=== PATIENT | male | born 1990 ===

== ENCOUNTER 2023-02-13 11:07 | Inpatient (IN) | payer OTHER ==
[2023-02-13 17:01] LABS: Basophils % (A) 0 %; Eosinophils # (A) 0.3 k/uL (0-0.7); Eosinophils % (A) 2 %; HCT 40.1 % (39.0-53.0); HGB 13.3 gm/dL (13.0-17.5); Lymphocytes % (A) 8 %; MCH 29.7 pg (25.0-35.0); MCHC 33.1 g/dL (31.0-37.0); MCV 89.8 fL (80.0-100.0); Mean Platelet Volume 8.3; Monocytes # (A) 0.6 k/uL (0-1.0); Monocytes % (A) 5 %; Neutrophils # (A) 10.4 k/uL (1.3-7.7); Neutrophils % (A) 83 %; Platelet Count 308 k/uL (150-450); RBC 4.47 m/uL (4.30-5.90); RDW 12.7 % (11.5-15.5); WBC 12.6 k/uL (3.8-10.6)
[2023-02-13] MEDS ORDERED: PIPERACILLIN-TAZOBACTAM 3.375 GM in SODIUM CHLORIDE 0.9% 100 ML IVPB STA (18:34)
[2023-02-13 18:51] LABS: ALT 23 U/L (4-49); AST 20 U/L (17-59); African American GFR (CKD) >90 (>60 ml/min/1.73 sqM); Albumin 2.9 g/dL (3.5-5.0); Alkaline Phosphatase 213 U/L (38-126); Anion Gap 14 mmol/L; Blood Urea Nitrogen 21 mg/dL (9-20); Calcium 8.4 mg/dL (8.4-10.2); Carbon Dioxide 18 mmol/L (22-30); Chloride 103 mmol/L (98-107); Glucose 279 mg/dL (74-99); Non-African American GFR(CKD) >90 (>60 ml/min/1.73 sqM); Potassium 4.3 mmol/L (3.5-5.1); Sodium 135 mmol/L (137-145); Total Bilirubin 0.5 mg/dL (0.2-1.3); Total Protein 6.1 g/dL (6.3-8.2)
--- NOTE | 2023-02-13 20:07 | ED ---
General Adult HPI - General Chief complaint: Skin/Abscess/Foreign Body Stated complaint: abd wound Time Seen by Provider: 02/13/23 16:26 Source: patient, RN notes reviewed Mode of arrival: ambulatory Limitations: no limitations - History of Present Illness Initial comments: 32-year-old male presents emergency Department with chief complaint of "boils." Patient states that he has a lesion in his pubic region that appeared about 1 week ago then he noticed another one on his left neck/shoulder about 2 days later. He states that the spots have had purulent discharge. His girlfriend states that she has been putting witch edgardo and Neosporin on the areas. Patient states that he has been having chills but no recorded fever at home. - Related Data Home Medications Medication Instructions Recorded Confirmed Ibuprofen [Motrin Ib] 800 mg PO Q8H PRN 02/13/23 02/13/23 Allergies Allergy/AdvReac Type Severity Reaction Status Date / Time No Known Allergies Allergy Verified 02/13/23 16:38 Review of Systems ROS Statement: Those systems with pertinent positive or pertinent negative responses have been documented in the HPI. ROS Other: All systems not noted in ROS Statement are negative. Past Medical History Past Medical History: Diabetes Mellitus Additional Past Medical History / Comment(s): COVID 2019 History of Any Multi-Drug Resistant Organisms: None Reported Past Surgical History: Orthopedic Surgery Additional Past Surgical History / Comment(s): rt wrist Past Psychological History: No Psychological Hx Reported Smoking Status: Never smoker Past Alcohol Use History: Rare Past Drug Use History: Marijuana General Exam Limitations: no limitations General appearance: alert, in no apparent distress Head exam: Present: atraumatic, normocephalic, normal inspection Eye exam: Present: normal appearance ENT exam: Present: normal exam, mucous membranes moist Neck exam: Present: other (wheeping wound on the left neck/shoulder, purulent drainage, erythematous, tender). Absent: tenderness, meningismus, lymphadenopathy Respiratory exam: Present: normal lung sounds bilaterally. Absent: respiratory distress, wheezes, rales, rhonchi, stridor Cardiovascular Exam: Present: regular rate, normal rhythm, normal heart sounds. Absent: systolic murmur, diastolic murmur, rubs, gallop, clicks GI/Abdominal exam: Present: soft, normal bowel sounds. Absent: distended, tenderness, guarding, rebound, rigid Extremities exam: Present: normal inspection, full ROM, normal capillary refill. Absent: tenderness, pedal edema, joint swelling, calf tenderness Back exam: Present: normal inspection Neurological exam: Present: alert, oriented X3 Psychiatric exam: Present: normal affect, normal mood Skin exam: Present: other (Patient has 2 wheeping, erythematous wounds, one being on his pubic bone and the other on his left neck, purulent drainage is present) Course Vital Signs 02/13/23 02/13/23 02/13/23 11:37 16:22 17:53 Temperature 98.1 F 98.2 F Pulse Rate 93 90 90 Respiratory 20 18 18 Rate Blood Pressure 157/94 164/105 170/98 O2 Sat by Pulse 99 99 99 Oximetry 02/13/23 18:55 Temperature Pulse Rate 70 Respiratory 18 Rate Blood Pressure 157/78 O2 Sat by Pulse 97 Oximetry Medical Decision Making - Medical Decision Making Was pt. sent in by a medical professional or institution (, PA, H[employer] INSPECTOR [employer]TER, urgent care, hospital, or [facility]...) When possible be specific @ -No Did you speak to anyone other than the patient for history (EMS, parent, family, police, friend...)? What history was obtained from this source @ -No Did you review nursing and triage notes (agree or disagree)? Why? @ -I reviewed and agree with nursing and triage notes Were old charts reviewed (outside hosp., previous admission, EMS record, old EKG, old radiological studies, urgent care reports/EKG's, [facility] records)? Report findings @ -No old charts were reviewed Differential Diagnosis (chest pain, altered mental status, abdominal pain women, abdominal pain men, vaginal bleeding, weakness, fever, dyspnea, syncope, headache, dizziness, GI bleed, back pain, seizure, CVA, palpatations, mental health, musculoskeletal)? @ -Differential Fever: Pneumonia, viral URI, endocarditis, myocarditis, pericarditis, otitis, sinusitis, peritonsillar Abscess, retropharyngeal Abscess, epiglottitis, peritonitis, appendicitis, Samantha cystitis, diverticulitis, hepatitis, colitis, UTI, PID, TOA, pyelonephritis, prostatitis, epididymitis, meningitis, encephalitis, pulmonary embolism, CVA, thyroid storm, pancreatitis, adrenal crisis, cavernous sinus thrombosis, this is not meant to be an all-inclusive list. EKG interpreted by me (3pts min.). @ -None X-rays interpreted by me (1pt min.). @ -None done CT interpreted by me (1pt min.). @ -None done U/S interpreted by me (1pt. min.). @ -None done What testing was considered but not performed or refused? (CT, X-rays, U/S, labs)? Why? @ -None What meds were considered but not given or refused? Why? @ -None Did you discuss the management of the patient with other professionals (p dee deefessionals i.e. , PA, H[employer] INSPECTOR [employer]TER, lab, RT, psych nurse, social services assistant, text transcriber, teacher, house officer, field case manager)? Give summary @ -Yes case was discussed with Dr. Blanca who is accepting the admission Was smoking cessation discussed for >3mins.? @ -No Was critical care preformed (if so, how long)? @ -No Were there social determinants of health that impacted care today? How? (Homelessness, low income, unemployed, alcoholism, drug addiction, transportation, low edu. Level, literacy, decrease access to med. care, fci, rehab)? @ -No Was there de-escalation of care discussed even if they declined (Discuss DNR or withdrawal of care, Hospice)? DNR status @ -No What co-morbidities impacted this encounter? (DM, HTN, Smoking, COPD, CAD, Cancer, CVA, ARF, Chemo, Hep., AIDS, mental health diagnosis, sleep apnea, morbid obesity)? @ -None Was patient admitted / discharged? Hospital course, mention meds given and route, prescriptions, significant lab abnormalities, going to OR and other pertinent info. @ -Admitted. Patient presented to the emergency department with chief complaint of draining wounds x1 week. Patient endorses chills. CBC and CMP were obtained which showed WBC 12.6, neutrophils 12.4, hemoglobin 13.3, hematocrit 40.1; CMP showed Na 135, glucose 279, alk phos 213, albumin 2.9. Blood cultures and wound cultures were obtained. Patient was administered Zosyn and vancomycin. With the patient's history of diabetes there is higher risk for complications. Case was discussed with Dr. Blanca who is accepting of the admission with infectious disease and surgery on consult. Case discussed with my attending, Dr. Henirquez Undiagnosed new problem with uncertain prognosis? @ -No Drug Therapy requiring intensive monitoring for toxicity (Heparin, Nitro, Insulin, Cardizem)? @ -No Were any procedures done? @ -No Diagnosis/symptom? @ -Abscess Acute, or Chronic, or Acute on Chronic? @ -Acute Uncomplicated (without systemic symptoms) or Complicated (systemic symptoms)? @ -Uncomplicated Side effects of treatment? @ -No Exacerbation, Progression, or Severe Exacerbation? @ -No Poses a threat to life or bodily function? How? (Chest pain, [place], [place], pneumonia, PE, COPD, DKA, ARF, appy, cholecystitis, CVA, Diverticulitis, Homicidal, Suicidal, threat to staff... and all critical care pts) @ -No - Lab Data Result diagrams: 02/13/23 16:20 02/13/23 18:04 Lab Results 02/13/23 02/13/23 Range/Units 16:20 18:04 WBC 12.6 H (3.8-10.6) k/uL RBC 4.47 (4.30-5.90) m/uL Hgb 13.3 (13.0-17.5) gm/dL Hct 40.1 (39.0-53.0) % MCV 89.8 (80.0-100.0) fL MCH 29.7 (25.0-35.0) pg MCHC 33.1 (31.0-37.0) g/dL RDW 12.7 (11.5-15.5) % Plt Count 308 (150-450) k/uL MPV 8.3 Neutrophils % 83 % Lymphocytes % 8 % Monocytes % 5 % Eosinophils % 2 % Basophils % 0 % Neutrophils # 10.4 H (1.3-7.7) k/uL Lymphocytes # 1.0 (1.0-4.8) k/uL Monocytes # 0.6 (0-1.0) k/uL Eosinophils # 0.3 (0-0.7) k/uL Basophils # 0.0 (0-0.2) k/uL Sodium 135 L (137-145) mmol/L Potassium 4.3 (3.5-5.1) mmol/L Chloride 103 (98-107) mmol/L Carbon Dioxide 18 L (22-30) mmol/L Anion Gap 14 mmol/L BUN 21 H (9-20) mg/dL Creatinine 1.01 (0.66-1.25) mg/dL Est GFR (CKD-EPI)AfAm >90 (>60 ml/min/1.73 sqM) Est GFR (CKD-EPI)NonAf >90 (>60 ml/min/1.73 sqM) Glucose 279 H (74-99) mg/dL Calcium 8.4 (8.4-10.2) mg/dL Total Bilirubin 0.5 (0.2-1.3) mg/dL AST 20 (17-59) U/L ALT 23 (4-49) U/L Alkaline Phosphatase 213 H (38-126) U/L Total Protein 6.1 L (6.3-8.2) g/dL Albumin 2.9 L (3.5-5.0) g/dL Disposition Clinical Impression: Abscess of pubic region Disposition: HOME SELF-CARE Condition: Stable Is patient prescribed a controlled substance at d/c from ED?: No Referrals: None,Stated [Primary Care Provider] - 1-2 days Time of Disposition: 20:23
[2023-02-13] MEDS ORDERED: ACETAMINOPHEN TAB 325 MG TAB PO PRN (20:12)
[2023-02-13] MEDS ORDERED: NALOXONE 0.4 MG/ML 1 ML VIAL IV PRN (20:12)
[2023-02-13] MEDS ORDERED: KETOROLAC 15 MG/ML 1 ML VIAL IVP PRN (20:12)
[2023-02-13] MEDS ORDERED: IBUPROFEN 400 MG TAB PO PRN (20:12)
[2023-02-13] MEDS ORDERED: ONDANSETRON 4 MG/2 ML VIAL IVP PRN (20:12)
[2023-02-13] MEDS ORDERED: VANCOMYCIN 1,000 MG in SODIUM CHLORIDE 0.9% 250 ML IVPB STA (20:16)
[2023-02-13] MEDS ORDERED: VANCOMYCIN IV PER PHARMACY 1 EACH MISC MISCELLANE PRN (20:21)
[2023-02-13] MEDS ORDERED: VANCOMYCIN 1,750 MG in SODIUM CHLORIDE 0.9% 500 ML 500 ML IVPB ONE (20:45)
[2023-02-13] MEDS: MORPHINE SULFATE 4 MG/ML SYRINGE IV PRN (22:37)
[2023-02-14] MEDS: SODIUM CHLORIDE 0.9% 1,000 ML IV SCH ×2 (01:32→11:49)
[2023-02-14] MEDS: MORPHINE SULFATE 4 MG/ML SYRINGE IV PRN (01:49)
[2023-02-14] MEDS: VANCOMYCIN 1,750 MG in SODIUM CHLORIDE 0.9% 500 ML 500 ML IVPB SCH ×3 (04:21→22:10)
[2023-02-14 05:43] LABS: African American GFR (CKD) >90 (>60 ml/min/1.73 sqM); Non-African American GFR(CKD) >90 (>60 ml/min/1.73 sqM)
--- NOTE | 2023-02-14 14:20 | P.GSCN ---
History of Present Illness Consult date: 02/14/23 History of present illness: CHIEF COMPLAINT: Abscess of the neck and pelvic area HISTORY OF PRESENT ILLNESS: This is a 32-year-old male who presented to the hospital for complaints of an abscess in the left side of his pelvis as well as on the back of his neck. He reports that they have been there for about 1 week. They have been draining. He reports pain at location of abscesses. He has a known history of diabetes that is diet controlled. He also has a history of prior abscess in the axilla region that he managed at home. Patient denies being on any blood thinners. Patient denies any fever, chills or sweats. Denies any nausea or vomiting. No prior history of MRSA PAST MEDICAL HISTORY: Abscess in axilla region, PE with COVID. Stopped taking blood thinners PAST SURGICAL HISTORY: See list. MEDICATIONS: See list. ALLERGIES: See list. SOCIAL HISTORY: No illicit drug use. REVIEW OF SYSTEMS: CONSTITUTIONAL: Denies fever or chills. HEENT: Denies blurred vision, vision changes, or eye pain. Denies hemoptysis ENDOCRINE: Denies heat or cold intolerance. CARDIOVASCULAR: Denies chest pain or pressure. RESPIRATORY: No shortness of breath. GASTROINTESTINAL: Please refer to HPI NEURO: Denies history of seizures. PSYCH: No depression or suicidal ideation HEMATOLOGIC: Denies bleeding disorders. LYMPHATIC: The patient denies any lumps and bumps around the neck. GENITOURINARY: Denies any blood in urine or increased urinary frequency. MUSCULOSKELETAL: Denies myalgias. Denies joint swelling. Denies decreased range of motion beyond patients baseline. SKIN: Denies pruitis. Denies rash. PHYSICAL EXAM: VITAL SIGNS: Reviewed GENERAL: Well-developed in no acute distress. HEENT: No sclera icterus. Extraocular movements grossly intact. Moist buccal mucosa. Head is atraumatic, normocephalic. Hears conversational speech. No nasal d rainage. NECK: Supple without lymphadenopathy. CHEST: Non-labored respirations and equal bilateral excursions. CARDIOVASCULAR: Palpable 2+ radial pulses. ABDOMEN: Soft. Nondistended. Left pelvis abscess that is draining purulent drainage. It's circular in size about 2 cm. Area is swollen and indurated evidence of fluctuance tender with palpation. MUSCULOSKELETAL: No clubbing or cyanosis. NEUROLOGIC: No focal or lateralizing signs. Cranial nerves II through XII grossly intact. PSYCH: Appropriate affect. Alert and oriented to person, place and time. SKIN: Abscess on the posterior aspect of the neck 1 cm in size with drainage. Erythema. Warm to touch and tender. LABORATORY DATA: WBC is 12.6 hgb 13.3 platelets 308 Sodium 135 potassium is 4.3 creatinine 1.01 Glucose 279 IMAGING: ASSESSMENT: 1. Left pelvic abscess 2. Posterior neck abscess 3. Leukocytosis 4. Diabetes mellitus with elevated blood sugar PLAN: -Continue IV antibiotics -Apply warm compresses -Recommend tight control of glucose -Continue supportive care -Follow up on wound culture results -Patient can shower -Further recommendations forthcoming per surgeon Thank you for this consultation Physician [facility] note has been reviewed by physician. Signing provider agrees with the documented findings, assessment, and plan of care. Past Medical History Past Medical History: Diabetes Mellitus Additional Past Medical History / Comment(s): COV2019 History of Any Multi-Drug Resistant Organisms: None Reported Past Surgical History: Orthopedic Surgery Additional Past Surgical History / Comment(s): rt wrist Past Anesthesia/Blood Transfusion Reactions: No Reported Reaction Past Psychological History: No Psychological Hx Reported Smoking Status: Never smoker Past Alcohol Use History: Rare Past Drug Use History: Marijuana Medications and Allergies Home Medications Medication Instructions Recorded Confirmed Type Ibuprofen [Motrin Ib] 800 mg PO Q8H PRN 02/13/23 02/13/23 History Allergies Allergy/AdvReac Type Severity Reaction Status Date / Time No Known Allergies Allergy Verified 02/13/23 16:38 Surgical - Exam Vital Signs Temp Pulse Resp BP Pulse Ox 98.1 F 93 20 157/94 99 02/13/23 11:37 02/13/23 11:37 02/13/23 11:37 02/13/23 11:37 02/13/23 11:37 Results - Labs 02/13/23 16:20 02/14/23 05:13 Abnormal Lab Results - Last 24 Hours (Table) 02/13/23 02/13/23 Range/Units 16:20 18:04 WBC 12.6 H (3.8-10.6) k/uL Neutrophils # 10.4 H (1.3-7.7) k/uL Sodium 135 L (137-145) mmol/L Carbon Dioxide 18 L (22-30) mmol/L BUN 21 H (9-20) mg/dL Glucose 279 H (74-99) mg/dL Alkaline Phosphatase 213 H (38-126) U/L Total Protein 6.1 L (6.3-8.2) g/dL Albumin 2.9 L (3.5-5.0) g/dL Microbiology - Last 24 Hours (Table) 02/13/23 17:33 Wound Culture - Preliminary Abdomen 02/13/23 17:33 Wound Culture - Preliminary Neck Diabetes panel 02/13/23 02/14/23 Range/Units 18:04 05:13 Sodium 135 L (137-145) mmol/L Potassium 4.3 (3.5-5.1) mmol/L Chloride 103 (98-107) mmol/L Carbon Dioxide 18 L (22-30) mmol/L BUN 21 H (9-20) mg/dL Creatinine 1.01 1.02 (0.66-1.25) mg/dL Glucose 279 H (74-99) mg/dL Calcium 8.4 (8.4-10.2) mg/dL AST 20 (17-59) U/L ALT 23 (4-49) U/L Alkaline Phosphatase 213 H (38-126) U/L Total Protein 6.1 L (6.3-8.2) g/dL Albumin 2.9 L (3.5-5.0) g/dL Calcium panel 02/13/23 Range/Units 18:04 Calcium 8.4 (8.4-10.2) mg/dL Albumin 2.9 L (3.5-5.0) g/dL Pituitary panel 02/13/23 02/14/23 Range/Units 18:04 05:13 Sodium 135 L (137-145) mmol/L Potassium 4.3 (3.5-5.1) mmol/L Chloride 103 (98-107) mmol/L Carbon Dioxide 18 L (22-30) mmol/L BUN 21 H (9-20) mg/dL Creatinine 1.01 1.02 (0.66-1.25) mg/dL Glucose 279 H (74-99) mg/dL Calcium 8.4 (8.4-10.2) mg/dL Adrenal panel 02/13/23 02/14/23 Range/Units 18:04 05:13 Sodium 135 L (137-145) mmol/L Potassium 4.3 (3.5-5.1) mmol/L Chloride 103 (98-107) mmol/L Carbon Dioxide 18 L (22-30) mmol/L BUN 21 H (9-20) mg/dL Creatinine 1.01 1.02 (0.66-1.25) mg/dL Glucose 279 H (74-99) mg/dL Calcium 8.4 (8.4-10.2) mg/dL Total Bilirubin 0.5 (0.2-1.3) mg/dL AST 20 (17-59) U/L ALT 23 (4-49) U/L Alkaline Phosphatase 213 H (38-126) U/L Total Protein 6.1 L (6.3-8.2) g/dL Albumin 2.9 L (3.5-5.0) g/dL
--- NOTE | 2023-02-14 18:42 | P.PN ---
Progress Note - Text Progress Note Date: 02/14/23 Patient reports drainage however moderate pain of the pelvic abscess subcu tissue and upper back. Overall, recommend surgical interventions for drainage of abscesses with placement of [place] drain. Control of blood sugar glucose for optimal recovery discussed.
[2023-02-14] MEDS ORDERED: DEXTROSE 50% SYRINGE 50 ML IVP PRN ×2 (18:43)
[2023-02-14 21:39] LABS: Glucose,Whole Blood 289 mg/dL (70-110)
--- NOTE | 2023-02-14 21:55 | P.CONS ---
History of Present Illness - Reason for Consult Consult date: 02/14/23 - History of Present Illness Patient is a 32-year-old male with past medical history significant for diabetes mellitus, presented to hospital with an area of boil on the pubic area and left shoulder that apparently has been going on for more than a week patient mention he has been taking care of them by applying some Neosporin cream and keeping them clean and let them dry out however the patient started having increasing pain especially to the left posterior shoulder area patient describes the pain to be sharp almost 10 out of 10 in severity with no radiation with associated swelling redness and some drainage for the patient presented to hospital on arrival to the ER the patient was afebrile and no fever has been recorded subsequently patient did have vital of 12.6 creatinine 1.01 liver enzymes are normal local cultures obtained which are currently pending patient was started on vancomycin infectious disease was consulted for further management of antibiotic therapy Past Medical History Past Medical History: Diabetes Mellitus Additional Past Medical History / Comment(s): 2019 History of Any Multi-Drug Resistant Organisms: None Reported Past Surgical History: Orthopedic Surgery Additional Past Surgical History / Comment(s): rt wrist Past Anesthesia/Blood Transfusion Reactions: No Reported Reaction Past Psychological History: No Psychological Hx Reported Smoking Status: Never smoker Past Alcohol Use History: Rare Past Drug Use History: Marijuana Medications and Allergies Home Medications Medication Instructions Recorded Confirmed Type Ibuprofen [Motrin Ib] 800 mg PO Q8H PRN 02/13/23 02/13/23 History Allergies Allergy/AdvReac Type Severity Reaction Status Date / Time No Known Allergies Allergy Verified 02/13/23 16:38 Physical Exam Vitals: Vital Signs Temp Pulse Pulse Resp BP BP Pulse Ox 02/14/23 07:00 98.2 F 84 18 146/78 98 02/14/23 02:00 92 02/14/23 01:27 98.9 F 92 17 165/94 96 02/14/23 00:03 99 15 138/80 99 02/13/23 23:00 94 L 02/13/23 21:10 99 15 154/93 98 02/13/23 18:55 70 18 157/78 97 02/13/23 17:53 90 18 170/98 99 02/13/23 16:22 98.2 F 90 18 164/105 99 Intake and Output 02/13/23 02/14/23 02/14/23 22:59 06:59 14:59 Intake Total 120 Balance 120 Intake: Oral 120 Other: # Voids 1 0 Weight 109.769 kg Results CBC & Chem 7: 02/13/23 16:20 02/14/23 05:13 Labs: Abnormal Lab Results - Last 24 Hours (Table) 02/13/23 02/13/23 Range/Units 16:20 18:04 WBC 12.6 H (3.8-10.6) k/uL Neutrophils # 10.4 H (1.3-7.7) k/uL Sodium 135 L (137-145) mmol/L Carbon Dioxide 18 L (22-30) mmol/L BUN 21 H (9-20) mg/dL Glucose 279 H (74-99) mg/dL Alkaline Phosphatase 213 H (38-126) U/L Total Protein 6.1 L (6.3-8.2) g/dL Albumin 2.9 L (3.5-5.0) g/dL Microbiology - Last 24 Hours (Table) 02/13/23 17:33 Wound Culture - Preliminary Abdomen 02/13/23 17:33 Wound Culture - Preliminary Neck Assessment and Plan Plan: 1patient presenting to the hospital with painful sores to the left posterior shoulder and the pubic area with the area of swelling redness and induration likely concerning for staphylococcal infection and concern for possible MRSA community associated 2-await surgical drainage and deep culture 3-vancomycin pharmacy to dose with a target trough of 15 while watching kidney function and Vanco trough closely. We will follow on clinical condition and cultures to further adjust medication if needed Thank you for this consultation we will follow the patient along with you Time with Patient: Greater than 30
[2023-02-14] MEDS: INSULIN ASPART (NovoLOG) 100 UNIT/ML VIAL SQ SCH (22:10)
--- NOTE | 2023-02-15 00:07 | P.HPIM ---
History of Present Illness H&P Date: 02/14/23 Chief Complaint: Abscess Patient is a 32-year-old male with a known history of diet-controlled diabetes type 2 presents to ER with complaints of abscess in the pubic region and also posterior neck. Patient has been having boils and is getting worse for the past 1 week. Patient states that last week he drove from [place] to [place] for his job and also works in hot climate and sweaty always. Denies any fever or chills. No nausea vomiting abdominal pain or diarrhea. No cough or sputum production. Laboratory data showed WBC 12.6 hemoglobin 13.3 and platelets 308, sodium 135 potassium 4.3 chloride 103 bicarb is 18 BUN 21 creatinine 1.01 and blood sugar is 279. AST 20 ALT 23 and alk phos 203 albumin 2.9. Review of Systems Constitutional: Patient denies any fever or chills . no Generalized weakness. Abdomen: Patient denied any nausea or vomiting or abd. pain. Abscess over the lower abdominal area and neck abscess.. Cardiovascular: Patient denies any chest pain or short of breath no palpitations. Respiratory: patient denied any cough . no sputum production. No shortness of breath Neurologic: Patient denied any numbness or tingling headache. Musculoskeletal: Patient denies any complaints of joint swelling or deformity. Skin: Negative Psychiatric: Negative Endocrine: No heat or cold intolerance. No recent weight gain. Genitourinary: No dysuria or hematuria. All other 14 point ROS negative except the above Past Medical History Past Medical History: Diabetes Mellitus Additional Past Medical History / Comment(s): 2019 History of Any Multi-Drug Resistant Organisms: None Reported Past Surgical History: Orthopedic Surgery Additional Past Surgical History / Comment(s): rt wrist Past Anesthesia/Blood Transfusion Reactions: No Reported Reaction Past Psychological History: No Psychological Hx Reported Smoking Status: Never smoker Past Alcohol Use History: Rare Past Drug Use History: Marijuana Medications and Allergies Home Medications Medication Instructions Recorded Confirmed Type Ibuprofen [Motrin Ib] 800 mg PO Q8H PRN 02/13/23 02/13/23 History Allergies Allergy/AdvReac Type Severity Reaction Status Date / Time No Known Allergies Allergy Verified 02/13/23 16:38 Physical Exam Vitals: Vital Signs Temp Pulse Pulse Resp BP BP Pulse Ox 02/14/23 07:00 98.2 F 84 18 146/78 98 02/14/23 02:00 92 02/14/23 01:27 98.9 F 92 17 165/94 96 02/14/23 00:03 99 15 138/80 99 02/13/23 23:00 94 L 02/13/23 21:10 99 15 154/93 98 02/13/23 18:55 70 18 157/78 97 02/13/23 17:53 90 18 170/98 99 02/13/23 16:22 98.2 F 90 18 164/105 99 02/13/23 11:37 98.1 F 93 20 157/94 99 Intake and Output 02/13/23 02/14/23 02/14/23 22:59 06:59 14:59 Intake Total 120 Balance 120 Intake: Oral 120 Other: # Voids 1 0 Weight 109.769 kg PHYSICAL EXAMINATION: Patient is lying in the bed comfortably, no acute distress, awake alert and oriented.. HEENT: Normocephalic. Neck is supple. Pupils reactive. Nostrils clear. Oral cavity is moist. Patient does have indurated area on the back of the neck with swelling redness and purulent discharge. Neck reveals no JVD, carotid bruits, or thyromegaly. CHEST EXAMINATION: Trachea is central. Symmetrical expansion. Lung brooks clear to auscultation and percussion. CARDIAC: Normal S1, S2 with no gallops. No murmurs ABDOMEN: Soft. Bowel sounds present. Nontender. No organomegaly. No abdominal bruits. Patient does have indurated area with redness swelling and tenderness with purulent discharge over the suprapubic region. Extremities: reveal no edema. No clubbing or cyanosis Neurologically awake, alert, oriented x3 with well-coordinated movements. No focal deficits noted Skin: No rash or skin lesions. Psychiatric: Coperative. Nonsuicidal, Musculoskeletal: No joint swelling or deformity. Normal range of motion. Results CBC & Chem 7: 02/13/23 16:20 02/14/23 05:13 Labs: Abnormal Lab Results - Last 24 Hours (Table) 02/13/23 02/13/23 Range/Units 16:20 18:04 WBC 12.6 H (3.8-10.6) k/uL Neutrophils # 10.4 H (1.3-7.7) k/uL Sodium 135 L (137-145) mmol/L Carbon Dioxide 18 L (22-30) mmol/L BUN 21 H (9-20) mg/dL Glucose 279 H (74-99) mg/dL Alkaline Phosphatase 213 H (38-126) U/L Total Protein 6.1 L (6.3-8.2) g/dL Albumin 2.9 L (3.5-5.0) g/dL Microbiology - Last 24 Hours (Table) 02/13/23 17:33 Wound Culture - Preliminary Abdomen 02/13/23 17:33 Wound Culture - Preliminary Neck Thrombosis Risk Factor Assmnt - DVT/VTE Prophylaxis DVT/VTE Prophylaxis: Pharmacologic Prophylaxis ordered - Choose All That Apply Any of the Below Risk Factors Present?: Yes Each Factor Represents 1 point: Obesity (BMI >25) Other Risk Factors: No Other congenital or acquired thrombophilia - If yes, enter type in comment: No Thrombosis Risk Factor Assessment Total Risk Factor Score: 1 Thrombosis Risk Factor Assessment Level: Low Risk Assessment and Plan Assessment: Suprapubic abscess/boil and back of the neck abscess. Sepsis secondary to above Hyperglycemia with uncontrolled diabetes type 2 DVT prophylaxis with heparin subcu Plan: Patient will be continued on antibiotics in the form of vancomycin for possible MRSA infection. Was given a dose of Zosyn in the ER. Current pain management with Toradol and morphine IV as needed. Follow-up wound cultures and general surgery was consulted for possible IND. Continue with insulin sliding scale and follow-up A1c level. Patient states that his blood sugar is reasonably controlled with the diet. Not on any hypoglycemic agents at this time. Time with Patient: Greater than 30
[2023-02-15] MEDS: SODIUM CHLORIDE 0.9% 1,000 ML IV SCH ×2 (00:16→13:24)
[2023-02-15 06:05] LABS: Glucose,Whole Blood 276 mg/dL (70-110)
[2023-02-15] MEDS: INSULIN ASPART (NovoLOG) 100 UNIT/ML VIAL SQ SCH ×4 (06:13→23:01)
[2023-02-15] MEDS: VANCOMYCIN 1,750 MG in SODIUM CHLORIDE 0.9% 500 ML 500 ML IVPB SCH ×2 (06:13→13:24)
[2023-02-15] MEDS: HEPARIN SODIUM,PORCINE/PF 5,000 UNIT/0.5 ML SYRINGE SQ SCH ×2 (07:12→16:10)
[2023-02-15] MEDS ORDERED: INSULIN DETEMIR (LEVEMIR) 100 UNIT/ML SYR SQ ONE (10:00)
[2023-02-15 10:51] LABS: Basophils # (A) 0.04 X 10*3/uL (0.00-0.10); Basophils % (A) 0.4 %; Eosinophils # (A) 0.39 X 10*3/uL (0.04-0.35); Eosinophils % (A) 4.2 %; HCT 37.8 % (39.6-50.0); HGB 12.6 g/dL (13.0-17.0); Lymphocytes # (A) 1.38 X 10*3/uL (0.90-5.00); MCH 29.2 pg (27.0-32.0); MCHC 33.3 g/dL (32.0-37.0); MCV 87.7 fL (80.0-97.0); Monocytes # (A) 0.79 X 10*3/uL (0.20-1.00); Monocytes % (A) 8.6 %; NRBC Per 100 WBC 0 /100 WBCS (0.0-0.0); Neutrophils # (A) 6.51 X 10*3/uL (1.80-7.70); Neutrophils % (A) 70.8 %; Platelet Count 307 X 10*3/uL (140-440); RBC 4.31 X 10*6/uL (4.40-5.60)
[2023-02-15 11:07] LABS: African American GFR (CKD) 131.4 (60.0-200.0); Anion Gap 11.4 mmol/L (10.00-18.00); BUN/Creat Ratio 13.56 Ratio (12.00-20.00); Blood Urea Nitrogen 12.2 mg/dL (9.0-27.0); Calcium 8.8 mg/dL (8.7-10.3); Carbon Dioxide 22.6 mmol/L (20.0-27.5); Non-African American GFR(CKD) 113.4 (60.0-200.0); Potassium 4.4 mmol/L (3.5-5.5)
[2023-02-15 11:46] LABS: Glucose,Whole Blood 242 mg/dL (70-110)
[2023-02-15] MEDS ORDERED: VANCOMYCIN TROUGH DUE 1 EACH MISC MISCELLANE ONE (12:00)
[2023-02-15 13:04] LABS: African American GFR (CKD) >90 (>60 ml/min/1.73 sqM); Non-African American GFR(CKD) >90 (>60 ml/min/1.73 sqM)
[2023-02-15 15:00] VITALS: BMI 31.0
--- NOTE | 2023-02-15 15:58 | P.PN ---
Subjective Progress Note Date: 02/15/23 Principal diagnosis: Pubic and left posterior shoulder/back area abscess Patient is 32 year male with a past medical history significant for diabetes mellitus presented to the hospital with boil/infection to the pubic and left posterior shoulder area. On today's evaluation that is 02/15/2023, patient denies having any fever or any chills, the patient is breathing comfortably pain to the left posterior shoulder and pubic area is currently controlled no chest pain shortness of breath or cough no abdominal pain or diarrhea Objective - Vital Signs Vital signs: Vital Signs Temp 98.4 F 02/15/23 08:45 Pulse 72 02/15/23 08:45 Resp 16 02/15/23 08:45 BP 175/91 02/15/23 08:45 Pulse Ox 98 02/15/23 08:45 FiO2 Intake & Output 02/14/23 02/15/23 02/15/23 18:59 06:59 18:59 Intake Total 480 Balance 480 Intake: Oral 480 Other: Voiding Method Toilet # Voids 1 1 - Exam GENERAL DESCRIPTION: Middle-aged male lying in bed in no distress RESPIRATORY SYSTEM: Unlabored breathing , decreased breath sounds at bases HEART: S1 S2 regular rate and rhythm , ABDOMEN: Soft , no tenderness EXTREMITIES: Left posterior shoulder area still have area of erythema - Labs CBC & Chem 7: 02/15/23 06:18 02/15/23 12:27 Labs: Abnormal Lab Results - Last 24 Hours (Table) 02/14/23 02/15/23 02/15/23 Range/Units 21:38 06:02 06:18 RBC 4.31 L (4.40-5.60) X 10*6/uL Hgb 12.6 L (13.0-17.0) g/dL Hct 37.8 L (39.6-50.0) % Immature Gran # 0.09 H (0.00-0.04) X 10*3/uL Eosinophils # 0.39 H (0.04-0.35) X 10*3/uL Glucose (70-110) mg/dL POC Glucose (mg/dL) 289 H 276 H (70-110) mg/dL 02/15/23 Range/Units 06:18 RBC (4.40-5.60) X 10*6/uL Hgb (13.0-17.0) g/dL Hct (39.6-50.0) % Immature Gran # (0.00-0.04) X 10*3/uL Eosinophils # (0.04-0.35) X 10*3/uL Glucose 283 H (70-110) mg/dL POC Glucose (mg/dL) (70-110) mg/dL Microbiology - Last 24 Hours (Table) 02/13/23 16:36 Blood Culture - Preliminary Blood 02/13/23 16:20 Blood Culture - Preliminary Blood 02/13/23 17:33 Gram Stain - Preliminary Neck Wound Culture - Preliminary 02/13/23 17:33 Gram Stain - Preliminary Abdomen Wound Culture - Preliminary Assessment and Plan (1) Abscess of pubic region Current Visit: Yes Status: Acute Code(s): L02.219 - CUTANEOUS ABSCESS OF TRUNK, UNSPECIFIED SNOMED Code(s): 140281914 Plan: 1patient presenting to the hospital with painful sores to the left posterior shoulder and the pubic area with the area of swelling redness and induration likely concerning for staphylococcal infection and concern for possible MRSA community associated 2Patient is scheduled for surgical drainage and deep culture this afternoon 3-patient to continue with vancomycin pharmacy to dose with a target trough of 15 while watching kidney function and Vanco trough closely. Time with Patient: Less than 30
[2023-02-15 17:23] LABS: Glucose,Whole Blood 171 mg/dL (70-110)
[2023-02-15] MEDS ORDERED: HYDROmorphone (PF) 1 MG/ML ONE (20:27)
[2023-02-15] MEDS ORDERED: LIDOCAINE 2% INJ 20 MG/ML (2 ML VIAL) ONE (20:27)
[2023-02-15] MEDS ORDERED: DEXAMETHASONE SOD PHOSPHATE 4 MG/ML 1 ML VIAL ONE (20:27)
[2023-02-15] MEDS ORDERED: MIDAZOLAM 2 MG/2 ML VIAL ONE (20:27)
[2023-02-15] MEDS ORDERED: SUCCINYLCHOLINE CHLORIDE 200 MG/10 ML VIAL IV ONE (20:27)
[2023-02-15] MEDS ORDERED: PROPOFOL 10 MG/ML 20 ML VIAL IV ONE (20:27)
[2023-02-15] MEDS ORDERED: fentaNYL (PF) 50 MCG/ML 2 ML AMP ONE (20:27)
[2023-02-15] MEDS ORDERED: ONDANSETRON 4 MG/2 ML VIAL ONE (20:27)
[2023-02-15] MEDS ORDERED: LACTATED RINGERS 1,000 ML IV ONE (20:32)
[2023-02-15] MEDS ORDERED: HYDROmorphone 1 MG/ML 1 ML SYRINGE IVP PRN (21:47)
[2023-02-15] MEDS ORDERED: ACETAMINOPHEN IV (For NPO) 1,000 MG in EMPTY BAG 1 BAG IVPB ONE (21:47)
--- NOTE | 2023-02-15 22:06 | P.OP ---
Date of Procedure: 02/15/23 Description of Procedure: SURGEON: JASPREET DIGGS MD COMPANY SECRETARY: NONE. PREOPERATIVE DIAGNOSES: 1. Complex abdominal wall abscess suprapubic 2. Leukocytosis 3. Hyperglycemia 4. Uncontrolled diabetes mellitus type 2 5. Obesity due to excess calories BMI 31.1 6. Upper back abscess POSTOPERATIVE DIAGNOSES: 1. Complex abdominal wall abscess suprapubic 9 x 8 cm, deep intramuscular with necrosis ulceration 4 x 3 cm 2. Leukocytosis 3. Hyperglycemia 4. Uncontrolled diabetes mellitus type 2 5. Obesity due to excess calories BMI 31.1 6. Upper back abscess, deep subcutaneous 8 x 7 cm with necrosis ulceration 2 x 2 centimeters OPERATION: 1. Incision and drainage of complex deep intramuscular suprapubic abdominal wall abscess, 9 x 8 cm 2. Sharp excisional debridement with mechanical debridement using 1 L normal saline of pulse lavage of complex abdominal wall ulcer 4 x 3 cm 3. Placement of 1/4-inch Anson drain in abscess pocket, suprapubic 4. Incision and drainage of complex deep subcutaneous upper back abscess, 8 x 7 cm 5. Sharp excisional debridement with mechanical debridement using 1 L normal saline of pulse lavage of upper back ulcer 2 x 2 cm 6. Placement of 1/4-inch Anson drain in abscess pocket, upper back 7. Incision and drainage of subcutaneous right groin abscess, 2 cm ANESTHESIA: Gen. ESTIMATED BLOOD LOSS: 50 mL. SPECIMENS REMOVED: 1. Aerobic, anaerobic culture of the complex abdominal wall suprapubic 2. Tissue culture suprapubic ulcer 3. Aerobic, anaerobic culture right groin abscess 4. Aerobic, anaerobic culture upper back abscess COMPLICATIONS: None. Condition: stable Disposition: floor Operative Findings: 1. Over 10 mL of seropurulent drainage from suprapubic abscess performed 2. Pulse lavage 1 L normal saline of abdominal wall pocket and upper back 3. Drain placed in evacuated abscess pocket 4. Debridement of necrotic tissue of upper back and suprapubic ulcer INDICATIONS: The patient is a 32-year-old male who presents with suprapubic swelling and upper back abscess with cellulitis and leukocytosis. Hemoglobin A1c 16.1% with hyperglycemia, uncontrolled diabetes. Symptoms continued to progress despite antibiotics, vancomycin. Given the complexity and size the abscesses, open surgical intervention was described with placement of Anson drain. Benefits and risks including bleeding, infection, wound dehiscence, cosmetic deformity were reviewed. Informed consent was obtained. DESCRIPTION OF PROCEDURE: Patient was brought into the operating room and laid in supine position. After general anesthetic, the abdomen and thigh were prepped and draped in a standard sterile fashion. A timeout protocol was performed with the operating team. Attention was brought to the complex suprapubic swelling 9 x 8 cm. Using a #10 blade a 4-cm transverse incision was made along the skin tension lines at the suprapubic area. A hemostat was used to dissect through the subcutaneous tissue to the fascia. Immediately, an egress of yellow and clear purulence non- malodorous was found and aerobic and anaerobic cultures were obtained. Next suction was used whereby approximately 10 mL of sadia pus was aspirated from the wound. The pocket was flushed using dilute hydrogen peroxide. Using a pulse lavage of 1 L normal saline for mechanical debridement to the fascia, the deep subcutaneous pocket was copiously irrigated. Digital dissection revealed dissection of abscess to the muscle. Necrotic tissue was sharply debrided using a #10 blade. Hemostasis was checked with electrocautery Bovie cautery. A quarter inch Anson drain was cut to fit into the deep pocket and tact to the skin using 2-0 nylon. The ulcer bed was 4 x 3 cm after being cleanly debrided. The wound was closed using interrupted 2-0 nylon over the drain. A 4 x 4 fluffs with ABD and 6 inch tape was placed over the wound. The patient was repositioned and right lateral decubitus position. Attention was then brought to the left upper back swelling 8 x 7 cm. Using a #10 blade a 4-cm transverse incision was made along the skin tension lines. A hemostat was used to dissect through the subcutaneous tissue. Immediately, an egress of yellow and clear purulence non-malodorous was found and aerobic and anaerobic cultures were obtained. Next suction was used whereby approximately 5 mL of sadia pus was aspirated from the wound. The pocket was flushed using dilute hydrogen peroxide. Using a pulse lavage of 1 L normal saline for mechanical debridement to deep subcutaneous pocket was copiously irrigated. Digital dissection revealed dissection of abscess to the fat. Necrotic tissue was sharply debrided using a #10 blade. Hemostasis was checked with electrocautery Bovie cautery. A quarter inch Anson drain was cut to fit into the deep pocket and tact to the skin using 2-0 nylon. The ulcer bed was 2 x 2 cm after being cleanly debrided. The wound was closed using interrupted 2-0 nylon over the drain. A 4 x 4 fluffs with ABD and 6 inch tape was placed over the wound. The patient was awoken from anesthesia. All sponge and instrument counts were verified correct by surgical instrument maker. The patient was transferred to postanesthesia care unit in stable condition.
[2023-02-15] MEDS ORDERED: HYDROmorphone 0.5 MG/0.5 ML SYRINGE IVP ONE (22:13)
[2023-02-15 22:22] LABS: Glucose,Whole Blood 159 mg/dL (70-110)
[2023-02-15 22:57] LABS: Glucose,Whole Blood 247 mg/dL (70-110)
[2023-02-16] MEDS: HEPARIN SODIUM,PORCINE/PF 5,000 UNIT/0.5 ML SYRINGE SQ SCH ×4 (00:56→22:09)
[2023-02-16] MEDS: SODIUM CHLORIDE 0.9% 1,000 ML IV SCH ×2 (03:46→12:58)
[2023-02-16] MEDS ORDERED: VANCOMYCIN TROUGH DUE 1 EACH MISC MISCELLANE ONE (04:00)
[2023-02-16] MEDS: VANCOMYCIN 1,750 MG in SODIUM CHLORIDE 0.9% 500 ML 500 ML IVPB SCH ×2 (05:54→17:09)
[2023-02-16 08:09] LABS: Glucose,Whole Blood 254 mg/dL (70-110)
[2023-02-16] MEDS: INSULIN ASPART (NovoLOG) 100 UNIT/ML VIAL SQ SCH ×7 (08:18→22:07)
[2023-02-16 08:24] LABS: Basophils % (A) 0 %; Eosinophils % (A) 0 %; HCT 38.1 % (39.0-53.0); HGB 12.5 gm/dL (13.0-17.5); Lymphocytes # (A) 0.8 k/uL (1.0-4.8); Lymphocytes % (A) 7 %; MCH 29.8 pg (25.0-35.0); MCHC 32.8 g/dL (31.0-37.0); MCV 90.8 fL (80.0-100.0); Mean Platelet Volume 7.7; Monocytes # (A) 0.3 k/uL (0-1.0); Monocytes % (A) 3 %; Neutrophils # (A) 11.2 k/uL (1.3-7.7); Neutrophils % (A) 90 %; Platelet Count 338 k/uL (150-450); RBC 4.19 m/uL (4.30-5.90); RDW 12.6 % (11.5-15.5); WBC 12.5 k/uL (3.8-10.6)
[2023-02-16 08:33] LABS: African American GFR (CKD) 78 (>60 ml/min/1.73 sqM); Anion Gap 19 mmol/L; Blood Urea Nitrogen 20 mg/dL (9-20); Calcium 8.2 mg/dL (8.4-10.2); Carbon Dioxide 14 mmol/L (22-30); Chloride 105 mmol/L (98-107); Glucose 271 mg/dL (74-99); Non-African American GFR(CKD) 68 (>60 ml/min/1.73 sqM); Potassium 4.5 mmol/L (3.5-5.1); Sodium 138 mmol/L (137-145)
--- NOTE | 2023-02-16 12:00 | P.PN ---
Subjective Progress Note Date: 02/16/23 Principal diagnosis: Abscess 32-year-old male with abscess suprapubic and upper back. Patient says his pain is somewhat improved today. He is afebrile. White blood cell count 12.5. Objective - Vital Signs Vital signs: Vital Signs Temp 98.0 F 02/16/23 08:10 Pulse 90 02/16/23 08:10 Resp 16 02/16/23 08:10 BP 153/90 02/16/23 08:10 Pulse Ox 99 02/16/23 08:10 FiO2 Intake & Output 02/15/23 02/16/23 02/16/23 18:59 06:59 18:59 Intake Total 850 240 Output Total 50 Balance 800 240 Weight 109.769 kg Intake: IV 850 Oral 240 Output: Estimated Blood Loss 50 Other: Voiding Method Toilet # Voids 3 2 - Exam Upper back and suprapubic incision sites with Anson drain in place, mild eryth dayan, mild tenderness, mild drainage - Labs CBC & Chem 7: 02/16/23 07:50 02/16/23 07:50 Labs: Abnormal Lab Results - Last 24 Hours (Table) 02/15/23 02/15/23 02/15/23 Range/Units 06:18 17:21 22:21 WBC (3.8-10.6) k/uL RBC (4.30-5.90) m/uL Hgb (13.0-17.5) gm/dL Hct (39.0-53.0) % Neutrophils # (1.3-7.7) k/uL Lymphocytes # (1.0-4.8) k/uL Carbon Dioxide (22-30) mmol/L Creatinine (0.66-1.25) mg/dL Glucose (74-99) mg/dL POC Glucose (mg/dL) 171 H 159 H (70-110) mg/dL Hemoglobin A1c 16.8 H (0.0-6.0) % Calcium (8.4-10.2) mg/dL 02/15/23 02/16/23 02/16/23 Range/Units 22:55 07:50 07:50 WBC 12.5 H (3.8-10.6) k/uL RBC 4.19 L (4.30-5.90) m/uL Hgb 12.5 L (13.0-17.5) gm/dL Hct 38.1 L (39.0-53.0) % Neutrophils # 11.2 H (1.3-7.7) k/uL Lymphocytes # 0.8 L (1.0-4.8) k/uL Carbon Dioxide 14 L (22-30) mmol/L Creatinine 1.38 H (0.66-1.25) mg/dL Glucose 271 H (74-99) mg/dL POC Glucose (mg/dL) 247 H (70-110) mg/dL Hemoglobin A1c (0.0-6.0) % Calcium 8.2 L (8.4-10.2) mg/dL 02/16/23 Range/Units 08:06 WBC (3.8-10.6) k/uL RBC (4.30-5.90) m/uL Hgb (13.0-17.5) gm/dL Hct (39.0-53.0) % Neutrophils # (1.3-7.7) k/uL Lymphocytes # (1.0-4.8) k/uL Carbon Dioxide (22-30) mmol/L Creatinine (0.66-1.25) mg/dL Glucose (74-99) mg/dL POC Glucose (mg/dL) 254 H (70-110) mg/dL Hemoglobin A1c (0.0-6.0) % Calcium (8.4-10.2) mg/dL Microbiology - Last 24 Hours (Table) 02/15/23 21:42 Anaerobic Culture - Preliminary Groin 02/15/23 21:43 Wound Culture - Preliminary Back 02/15/23 21:42 Wound Culture - Preliminary Groin 02/15/23 21:42 Anaerobic Culture - Preliminary Groin 02/15/23 21:42 Wound Culture - Preliminary Groin 02/15/23 21:42 Anaerobic Culture - Preliminary Groin 02/15/23 21:42 Tissue Culture - Preliminary Groin 02/15/23 21:42 Anaerobic Culture - Preliminary Back 02/13/23 17:33 Gram Stain - Preliminary Neck Wound Culture - Preliminary Presumptive Staph aureus 02/13/23 17:33 Gram Stain - Preliminary Abdomen Wound Culture - Preliminary Presumptive Staph aureus 02/13/23 16:36 Blood Culture - Preliminary Blood 02/13/23 16:20 Blood Culture - Preliminary Blood Assessment and Plan (1) Abscess of pubic region Narrative/Plan: Patient doing better at this time. Continue antibiotics per infectious disease. Continue local wound care. May shower. Current Visit: Yes Status: Acute Code(s): L02.219 - CUTANEOUS ABSCESS OF TRUNK, UNSPECIFIED SNOMED Code(s): 664503678
[2023-02-16 12:13] LABS: Glucose,Whole Blood 247 mg/dL (70-110)
--- NOTE | 2023-02-16 15:37 | P.PN ---
Subjective Progress Note Date: 02/16/23 Patient is a 32-year-old male with a known history of diet-controlled diabetes type 2 presents to ER with complaints of abscess in the pubic region and also posterior neck. Patient has been having boils and is getting worse for the past 1 week. Patient states that last week he drove from [place] to [place] for his job and also works in hot climate and sweaty always. Denies any fever or chills. No nausea vomiting abdominal pain or diarrhea. No cough or sputum production. Laboratory data showed WBC 12.6 hemoglobin 13.3 and platelets 308, sodium 135 potassium 4.3 chloride 103 bicarb is 18 BUN 21 creatinine 1.01 and blood sugar is 279. AST 20 ALT 23 and alk phos 203 albumin 2.9. 02/16. Patient seen and examined. WBC this morning is 12.5, hemoglobin 8.5, sodium 138, potassium 4.5, creatinine 1.38 REVIEW OF SYSTEMS: CONSTITUTIONAL: No fever, no malaise,. CARDIOVASCULAR: No chest pain, no palpitations, no syncope. PULMONARY: No shortness of breath, no cough, GASTROINTESTINAL: No diarrhea, no nausea, no vomiting, no abdominal pain. NEUROLOGICAL: No headaches, no weakness, PHYSICAL EXAMINATION: GENERAL: The patient is alert and oriented x3, not in any acute distress. Well developed, well nourished. HEENT: Pupils are round and equally reacting to light. EOMI. No scleral icterus. No conjunctival pallor. Normocephalic, atraumatic. No pharyngeal erythema. No thyromegaly. CARDIOVASCULAR: S1 and S2 present. No murmurs, rubs, or gallops. PULMONARY: Chest is clear to auscultation, no wheezing or crackles. ABDOMEN: Soft, nontender, nondistended, normoactive bowel sounds. Surgical incision seen in the pubic area, Anson drains seen MUSCULOSKELETAL: No joint swelling or deformity. EXTREMITIES: No cyanosis, clubbing, or pedal edema. NEUROLOGICAL: Gross neurological examination did not reveal any focal deficits. SKIN: Surgical incision seen in the left side of the back Assessment and plan Complex abdominal wall abscess suprapubic Hyperglycemia Uncontrolled diabetes mellitus type 2 Obesity due to excess calories BMI 31.1 Upper back abscess Sepsis secondary to above Monitor vital signs Monitor CBC Monitor CMP -Status post Incision and drainage of complex deep intramuscular suprapubic abdominal wall abscess, 9 x 8 cm on 02/15,Sharp excisional debridement with mechanical debridement using 1 L normal saline of pulse lavage of complex abdominal wall ulcer 4 x 3 cm and Placement of 1/4-inch Beaver drain in abscess pocket, suprapubic -Status post Incision and drainage of complex deep subcutaneous upper back abscess, 8 x 7 cm, Sharp excisional debridement with mechanical debridement usin g 1 L normal saline of pulse lavage of upper back ulcer 2 x 2 cm , Placement of 1/4-inch Anson drain in abscess pocket, upper back Continue wound care Continue pharmacy dose vancomycin Follow-up on general surgery recommendations follow-up in ID recommendations Current pain management with Toradol and morphine IV as needed. Follow-up wound cultures Continue with insulin sliding scale and follow-up A1c level. Objective - Vital Signs Vital signs: Vital Signs Temp 98.0 F 02/16/23 08:10 Pulse 90 02/16/23 08:10 Resp 16 02/16/23 08:10 BP 153/90 02/16/23 08:10 Pulse Ox 99 02/16/23 08:10 FiO2 Intake & Output 02/15/23 02/16/23 02/16/23 18:59 06:59 18:59 Intake Total 850 240 Output Total 50 Balance 800 240 Weight 109.769 kg Intake: IV 850 Oral 240 Output: Estimated Blood Loss 50 Other: Voiding Method Toilet # Voids 3 2 - Labs CBC & Chem 7: 02/16/23 07:50 02/16/23 07:50 Labs: Abnormal Lab Results - Last 24 Hours (Table) 02/15/23 02/15/23 02/15/23 Range/Units 06:18 06:18 06:18 WBC (3.8-10.6) k/uL RBC 4.31 L (4.40-5.60) X 10*6/uL Hgb 12.6 L (13.0-17.0) g/dL Hct 37.8 L (39.6-50.0) % Immature Gran # 0.09 H (0.00-0.04) X 10*3/uL Neutrophils # (1.3-7.7) k/uL Lymphocytes # (1.0-4.8) k/uL Eosinophils # 0.39 H (0.04-0.35) X 10*3/uL Carbon Dioxide (22-30) mmol/L Creatinine (0.66-1.25) mg/dL Glucose 283 H (70-110) mg/dL POC Glucose (mg/dL) (70-110) mg/dL Hemoglobin A1c 16.8 H (0.0-6.0) % Calcium (8.4-10.2) mg/dL 02/15/23 02/15/23 02/15/23 Range/Units 11:44 17:21 22:21 WBC (3.8-10.6) k/uL RBC (4.40-5.60) X 10*6/uL Hgb (13.0-17.0) g/dL Hct (39.6-50.0) % Immature Gran # (0.00-0.04) X 10*3/uL Neutrophils # (1.3-7.7) k/uL Lymphocytes # (1.0-4.8) k/uL Eosinophils # (0.04-0.35) X 10*3/uL Carbon Dioxide (22-30) mmol/L Creatinine (0.66-1.25) mg/dL Glucose (70-110) mg/dL POC Glucose (mg/dL) 242 H 171 H 159 H (70-110) mg/dL Hemoglobin A1c (0.0-6.0) % Calcium (8.4-10.2) mg/dL 02/15/23 02/16/23 02/16/23 Range/Units 22:55 07:50 07:50 WBC 12.5 H (3.8-10.6) k/uL RBC 4.19 L (4.40-5.60) X 10*6/uL Hgb 12.5 L (13.0-17.0) g/dL Hct 38.1 L (39.6-50.0) % Immature Gran # (0.00-0.04) X 10*3/uL Neutrophils # 11.2 H (1.3-7.7) k/uL Lymphocytes # 0.8 L (1.0-4.8) k/uL Eosinophils # (0.04-0.35) X 10*3/uL Carbon Dioxide 14 L (22-30) mmol/L Creatinine 1.38 H (0.66-1.25) mg/dL Glucose 271 H (70-110) mg/dL POC Glucose (mg/dL) 247 H (70-110) mg/dL Hemoglobin A1c (0.0-6.0) % Calcium 8.2 L (8.4-10.2) mg/dL 02/16/23 Range/Units 08:06 WBC (3.8-10.6) k/uL RBC (4.40-5.60) X 10*6/uL Hgb (13.0-17.0) g/dL Hct (39.6-50.0) % Immature Gran # (0.00-0.04) X 10*3/uL Neutrophils # (1.3-7.7) k/uL Lymphocytes # (1.0-4.8) k/uL Eosinophils # (0.04-0.35) X 10*3/uL Carbon Dioxide (22-30) mmol/L Creatinine (0.66-1.25) mg/dL Glucose (70-110) mg/dL POC Glucose (mg/dL) 254 H (70-110) mg/dL Hemoglobin A1c (0.0-6.0) % Calcium (8.4-10.2) mg/dL Microbiology - Last 24 Hours (Table) 02/15/23 21:42 Anaerobic Culture - Preliminary Groin 02/15/23 21:43 Wound Culture - Preliminary Back 02/15/23 21:42 Wound Culture - Preliminary Groin 02/15/23 21:42 Anaerobic Culture - Preliminary Groin 02/15/23 21:42 Wound Culture - Preliminary Groin 02/15/23 21:42 Anaerobic Culture - Preliminary Groin 02/15/23 21:42 Tissue Culture - Preliminary Groin 02/15/23 21:42 Anaerobic Culture - Preliminary Back 02/13/23 17:33 Gram Stain - Preliminary Neck Wound Culture - Preliminary Presumptive Staph aureus 02/13/23 17:33 Gram Stain - Preliminary Abdomen Wound Culture - Preliminary Presumptive Staph aureus 02/13/23 16:36 Blood Culture - Preliminary Blood 02/13/23 16:20 Blood Culture - Preliminary Blood
[2023-02-16 17:11] LABS: Glucose,Whole Blood 292 mg/dL (70-110)
[2023-02-16 21:37] LABS: Glucose,Whole Blood 304 mg/dL (70-110)
--- NOTE | 2023-02-16 22:03 | P.PN ---
Subjective Progress Note Date: 02/16/23 Principal diagnosis: Pubic and left posterior shoulder/back area abscess Patient is 32 year male with a past medical history significant for diabetes mellitus presented to the hospital with boil/infection to the pubic and left posterior shoulder area. Patient is s/p surgical drainage of the suprapubic and the left posterior shoulder area abscess completed by general surgery on 02/15/2023. On today's evaluation that is 02/16/2023, the patient denies having any fever or any chills patient is breathing comfortably on room air denies any chest pain shortness of breath or cough no abdominal pain or diarrhea pain to the suprapubic and the posterior shoulder area is currently controlled Objective - Vital Signs Vital signs: Vital Signs Temp 98.0 F 02/16/23 08:10 Pulse 90 02/16/23 08:10 Resp 16 02/16/23 08:10 BP 153/90 02/16/23 08:10 Pulse Ox 99 02/16/23 08:10 FiO2 Intake & Output 02/15/23 02/16/23 02/16/23 18:59 06:59 18:59 Intake Total 850 240 Output Total 50 Balance 800 240 Weight 109.769 kg Intake: IV 850 Oral 240 Output: Estimated Blood Loss 50 Other: Voiding Method Toilet # Voids 3 2 - Exam GENERAL DESCRIPTION: Middle-aged male lying in bed in no distress RESPIRATORY SYSTEM: Unlabored breathing , decreased breath sounds at bases HEART: S1 S2 regular rate and rhythm , ABDOMEN: Soft , no tenderness EXTREMITIES: Left posterior shoulder area still have area of erythema - Labs CBC & Chem 7: 02/16/23 07:50 02/16/23 07:50 Labs: Abnormal Lab Results - Last 24 Hours (Table) 02/15/23 02/15/23 02/15/23 Range/Units 06:18 11:44 17:21 WBC (3.8-10.6) k/uL RBC (4.30-5.90) m/uL Hgb (13.0-17.5) gm/dL Hct (39.0-53.0) % Neutrophils # (1.3-7.7) k/uL Lymphocytes # (1.0-4.8) k/uL Carbon Dioxide (22-30) mmol/L Creatinine (0.66-1.25) mg/dL Glucose (74-99) mg/dL POC Glucose (mg/dL) 242 H 171 H (70-110) mg/dL Hemoglobin A1c 16.8 H (0.0-6.0) % Calcium (8.4-10.2) mg/dL 02/15/23 02/15/23 02/16/23 Range/Units 22:21 22:55 07:50 WBC (3.8-10.6) k/uL RBC (4.30-5.90) m/uL Hgb (13.0-17.5) gm/dL Hct (39.0-53.0) % Neutrophils # (1.3-7.7) k/uL Lymphocytes # (1.0-4.8) k/uL Carbon Dioxide 14 L (22-30) mmol/L Creatinine 1.38 H (0.66-1.25) mg/dL Glucose 271 H (74-99) mg/dL POC Glucose (mg/dL) 159 H 247 H (70-110) mg/dL Hemoglobin A1c (0.0-6.0) % Calcium 8.2 L (8.4-10.2) mg/dL 02/16/23 02/16/23 Range/Units 07:50 08:06 WBC 12.5 H (3.8-10.6) k/uL RBC 4.19 L (4.30-5.90) m/uL Hgb 12.5 L (13.0-17.5) gm/dL Hct 38.1 L (39.0-53.0) % Neutrophils # 11.2 H (1.3-7.7) k/uL Lymphocytes # 0.8 L (1.0-4.8) k/uL Carbon Dioxide (22-30) mmol/L Creatinine (0.66-1.25) mg/dL Glucose (74-99) mg/dL POC Glucose (mg/dL) 254 H (70-110) mg/dL Hemoglobin A1c (0.0-6.0) % Calcium (8.4-10.2) mg/dL Microbiology - Last 24 Hours (Table) 02/15/23 21:42 Anaerobic Culture - Preliminary Groin 02/15/23 21:43 Wound Culture - Preliminary Back 02/15/23 21:42 Wound Culture - Preliminary Groin 02/15/23 21:42 Anaerobic Culture - Preliminary Groin 02/15/23 21:42 Wound Culture - Preliminary Groin 02/15/23 21:42 Anaerobic Culture - Preliminary Groin 02/15/23 21:42 Tissue Culture - Preliminary Groin 02/15/23 21:42 Anaerobic Culture - Preliminary Back 02/13/23 17:33 Gram Stain - Preliminary Neck Wound Culture - Preliminary Presumptive Staph aureus 02/13/23 17:33 Gram Stain - Preliminary Abdomen Wound Culture - Preliminary Presumptive Staph aureus 02/13/23 16:36 Blood Culture - Preliminary Blood 02/13/23 16:20 Blood Culture - Preliminary Blood Assessment and Plan (1) Abscess of pubic region Current Visit: Yes Status: Acute Code(s): L02.219 - CUTANEOUS ABSCESS OF TRUNK, UNSPECIFIED SNOMED Code(s): 576103409 Plan: 1patient presenting to the hospital with painful sores to the left posterior shoulder and the pubic area with the area of swelling redness and induration likely concerning for staphylococcal infection and concern for possible MRSA community associated 2Patient is s/p surgical drainage and deep culture which are currently pending 3-patient to continue with vancomycin pharmacy to dose while waiting for cultures to be finalized Time with Patient: Less than 30
[2023-02-16] MEDS: INSULIN DETEMIR (LEVEMIR) 100 UNIT/ML SYR SQ SCH (22:07)
[2023-02-17] MEDS ORDERED: VANCOMYCIN TROUGH DUE 1 EACH MISC MISCELLANE ONE (04:00)
[2023-02-17] MEDS: SODIUM CHLORIDE 0.9% 1,000 ML IV SCH ×2 (05:30→17:57)
[2023-02-17 08:12] LABS: Glucose,Whole Blood 249 mg/dL (70-110)
[2023-02-17] MEDS: INSULIN ASPART (NovoLOG) 100 UNIT/ML VIAL SQ SCH ×7 (08:27→21:51)
[2023-02-17] MEDS: HEPARIN SODIUM,PORCINE/PF 5,000 UNIT/0.5 ML SYRINGE SQ SCH ×3 (08:27→21:52)
[2023-02-17 09:15] LABS: Basophils # (A) 0.04 X 10*3/uL (0.00-0.10); Basophils % (A) 0.5 %; Eosinophils % (A) 2.3 %; HCT 32.2 % (39.6-50.0); HGB 10.6 g/dL (13.0-17.0); Immature Grans, Automated 0.9 %; Lymphocytes # (A) 2.07 X 10*3/uL (0.90-5.00); Lymphocytes % (A) 24.3 %; MCH 29.5 pg (27.0-32.0); MCHC 32.9 g/dL (32.0-37.0); MCV 89.7 fL (80.0-97.0); Mean Platelet Volume 10.3 fL (9.5-12.2); Monocytes # (A) 0.75 X 10*3/uL (0.20-1.00); Monocytes % (A) 8.8 %; NRBC Per 100 WBC 0 /100 WBCS (0.0-0.0); Neutrophils # (A) 5.38 X 10*3/uL (1.80-7.70); Neutrophils % (A) 63.2 %; Platelet Count 278 X 10*3/uL (140-440); RBC 3.59 X 10*6/uL (4.40-5.60); RDW 12.2 % (11.5-14.5); WBC 8.52 X 10*3/uL (4.50-10.00)
[2023-02-17 10:38] LABS: ALT 11 U/L (10-49); AST 14 U/L (14-35); Albumin 2.4 g/dL (3.8-4.9); Alkaline Phosphatase 104 U/L (41-126); BUN/Creat Ratio 17.36 Ratio (12.00-20.00); Blood Urea Nitrogen 24.3 mg/dL (9.0-27.0); Calcium 7.7 mg/dL (8.7-10.3); Carbon Dioxide 20.3 mmol/L (20.0-27.5); Chloride 108 mmol/L (96-109); Globulin 2.4 g/dL (1.6-3.3); Glucose 260 mg/dL (70-110); Non-African American GFR(CKD) 66.5 (60.0-200.0); Potassium 3.9 mmol/L (3.5-5.5); Sodium 139 mmol/L (135-145); Total Bilirubin <0.15 mg/dL (0.30-1.20); Total Protein 4.8 g/dL (6.2-8.2)
--- NOTE | 2023-02-17 11:04 | P.PN ---
Subjective Progress Note Date: 02/17/23 Principal diagnosis: Abscess Patient doing well today. Says his pain is better. He is afebrile. White blood cell count 8.5. Objective - Vital Signs Vital signs: Vital Signs Temp 98.1 F 02/17/23 08:15 Pulse 82 02/17/23 08:15 Resp 16 02/17/23 08:15 BP 162/91 02/17/23 08:15 Pulse Ox 98 02/17/23 08:15 FiO2 Intake & Output 02/16/23 02/17/23 02/17/23 18:59 06:59 18:59 Intake Total 358 Balance 358 Intake: Oral 358 Other: Voiding Method Toilet # Voids 2 2 - Exam Back and groin wounds with decreased erythema, slightly less induration, mild tenderness - Labs CBC & Chem 7: 02/17/23 04:28 02/17/23 04:28 Labs: Abnormal Lab Results - Last 24 Hours (Table) 02/16/23 02/16/23 02/16/23 Range/Units 12:11 17:10 21:36 RBC (4.40-5.60) X 10*6/uL Hgb (13.0-17.0) g/dL Hct (39.6-50.0) % Immature Gran # (0.00-0.04) X 10*3/uL Glucose (70-110) mg/dL POC Glucose (mg/dL) 247 H 292 H 304 H (70-110) mg/dL Calcium (8.7-10.3) mg/dL Total Bilirubin (0.30-1.20) mg/dL Total Protein (6.2-8.2) g/dL Albumin (3.8-4.9) g/dL Albumin/Globulin Ratio (1.60-3.17) g/dL 02/17/23 02/17/23 02/17/23 Range/Units 04:28 04:28 08:10 RBC 3.59 L (4.40-5.60) X 10*6/uL Hgb 10.6 L (13.0-17.0) g/dL Hct 32.2 L (39.6-50.0) % Immature Gran # 0.08 H (0.00-0.04) X 10*3/uL Glucose 260 H (70-110) mg/dL POC Glucose (mg/dL) 249 H (70-110) mg/dL Calcium 7.7 L (8.7-10.3) mg/dL Total Bilirubin <0.15 L (0.30-1.20) mg/dL Total Protein 4.8 L (6.2-8.2) g/dL Albumin 2.4 L (3.8-4.9) g/dL Albumin/Globulin Ratio 1.00 L (1.60-3.17) g/dL Microbiology - Last 24 Hours (Table) 02/15/23 21:42 Gram Stain - Preliminary Groin Wound Culture - Preliminary Presumptive Staph aureus 02/15/23 21:42 Gram Stain - Preliminary Groin Wound Culture - Preliminary Presumptive Staph aureus 02/15/23 21:42 Gram Stain - Preliminary Groin Tissue Culture - Preliminary Presumptive Staph aureus 02/15/23 21:43 Gram Stain - Preliminary Back Wound Culture - Preliminary Presumptive Staph aureus 02/13/23 16:36 Blood Culture - Preliminary Blood 02/13/23 16:20 Blood Culture - Preliminary Blood 02/13/23 17:33 Gram Stain - Final Neck Wound Culture - Final Staphylococcus aureus 02/13/23 17:33 Gram Stain - Final Abdomen Wound Culture - Final Staphylococcus aureus Assessment and Plan (1) Abscess of pubic region Narrative/Plan: Overall patient doing better after recent incision and drainage. Continue IV antibiotics. May shower today. Reevaluate tomorrow. Current Visit: Yes Status: Acute Code(s): L02.219 - CUTANEOUS ABSCESS OF TRUNK, UNSPECIFIED SNOMED Code(s): 353964725
[2023-02-17 12:07] LABS: Glucose,Whole Blood 225 mg/dL (70-110)
--- NOTE | 2023-02-17 12:53 | P.PN ---
Subjective Progress Note Date: 02/17/23 Patient is a 32-year-old male with a known history of diet-controlled diabetes type 2 presents to ER with complaints of abscess in the pubic region and also posterior neck. Patient has been having boils and is getting worse for the past 1 week. Patient states that last week he drove from [place] to [place] for his job and also works in hot climate and sweaty always. Denies any fever or chills. No nausea vomiting abdominal pain or diarrhea. No cough or sputum production. Laboratory data showed WBC 12.6 hemoglobin 13.3 and platelets 308, sodium 135 potassium 4.3 chloride 103 bicarb is 18 BUN 21 creatinine 1.01 and blood sugar is 279. AST 20 ALT 23 and alk phos 203 albumin 2.9. 02/16. Patient seen and examined. WBC this morning is 12.5, hemoglobin 8.5, sodium 138, potassium 4.5, creatinine 1.38 02/17. Patient seen and examined. Significant other at the bedside. Sitting upright in the recliner. States pain is under control. Patient keen to go home. REVIEW OF SYSTEMS: CONSTITUTIONAL: No fever, no malaise,. CARDIOVASCULAR: No chest pain, no palpitations, no syncope. PULMONARY: No shortness of breath, no cough, GASTROINTESTINAL: No diarrhea, no nausea, no vomiting, no abdominal pain. NEUROLOGICAL: No headaches, no weakness, PHYSICAL EXAMINATION: GENERAL: The patient is alert and oriented x3, not in any acute distress. Well developed, well nourished. HEENT: Pupils are round and equally reacting to light. EOMI. No scleral icterus. No conjunctival pallor. Normocephalic, atraumatic. No pharyngeal erythema. No thyromegaly. CARDIOVASCULAR: S1 and S2 present. No murmurs, rubs, or gallops. PULMONARY: Chest is clear to auscultation, no wheezing or crackles. ABDOMEN: Soft, nontender, nondistended, normoactive bowel sounds. Surgical incision seen in the pubic area, Anson drains seen MUSCULOSKELETAL: No joint swelling or deformity. EXTREMITIES: No cyanosis, clubbing, or pedal edema. NEUROLOGICAL: Gross neurological examination did not reveal any focal deficits. SKIN: Surgical incision seen in the left side of the back Assessment and plan Complex abdominal wall abscess suprapubic Hyperglycemia Uncontrolled diabetes mellitus type 2 Obesity due to excess calories BMI 31.1 Upper back abscess Sepsis secondary to above Monitor vital signs Monitor CBC Monitor CMP -Status post Incision and drainage of complex deep intramuscular suprapubic abdominal wall abscess, 9 x 8 cm on 02/15,Sharp excisional debridement with mechanical debridement using 1 L normal saline of pulse lavage of complex abdominal wall ulcer 4 x 3 cm and Placement of 1/4-inch Anson drain in abscess pocket, suprapubic -Status post Incision and drainage of complex deep subcutaneous upper back abscess, 8 x 7 cm, Sharp excisional debridement with mechanical debridement using 1 L normal saline of pulse lavage of upper back ulcer 2 x 2 cm , Placement of 1/4-inch Anson drain in abscess pocket, upper back Continue wound care Continue pharmacy dose vancomycin Current pain management with Toradol and morphine IV as needed. Follow-up wound cultures Continue with insulin sliding scale and follow-up A1c level. Follow-up on general surgery recommendations follow-up in ID recommendations Objective - Vital Signs Vital signs: Vital Signs Temp 98.1 F 02/17/23 08:15 Pulse 82 02/17/23 08:15 Resp 16 02/17/23 08:15 BP 162/91 02/17/23 08:15 Pulse Ox 98 02/17/23 08:15 FiO2 Intake & Output 02/16/23 02/17/23 02/17/23 18:59 06:59 18:59 Intake Total 358 Balance 358 Intake: Oral 358 Other: Voiding Method Toilet # Voids 2 2 - Labs CBC & Chem 7: 02/17/23 04:28 02/17/23 04:28 Labs: Abnormal Lab Results - Last 24 Hours (Table) 02/16/23 02/16/23 02/17/23 Range/Units 17:10 21:36 04:28 RBC 3.59 L (4.40-5.60) X 10*6/uL Hgb 10.6 L (13.0-17.0) g/dL Hct 32.2 L (39.6-50.0) % Immature Gran # 0.08 H (0.00-0.04) X 10*3/uL Glucose (70-110) mg/dL POC Glucose (mg/dL) 292 H 304 H (70-110) mg/dL Calcium (8.7-10.3) mg/dL Total Bilirubin (0.30-1.20) mg/dL Total Protein (6.2-8.2) g/dL Albumin (3.8-4.9) g/dL Albumin/Globulin Ratio (1.60-3.17) g/dL 02/17/23 02/17/23 02/17/23 Range/Units 04:28 08:10 12:05 RBC (4.40-5.60) X 10*6/uL Hgb (13.0-17.0) g/dL Hct (39.6-50.0) % Immature Gran # (0.00-0.04) X 10*3/uL Glucose 260 H (70-110) mg/dL POC Glucose (mg/dL) 249 H 225 H (70-110) mg/dL Calcium 7.7 L (8.7-10.3) mg/dL Total Bilirubin <0.15 L (0.30-1.20) mg/dL Total Protein 4.8 L (6.2-8.2) g/dL Albumin 2.4 L (3.8-4.9) g/dL Albumin/Globulin Ratio 1.00 L (1.60-3.17) g/dL Microbiology - Last 24 Hours (Table) 02/15/23 21:42 Gram Stain - Preliminary Groin Wound Culture - Preliminary Presumptive Staph aureus 02/15/23 21:42 Gram Stain - Preliminary Groin Wound Culture - Preliminary Presumptive Staph aureus 02/15/23 21:42 Gram Stain - Preliminary Groin Tissue Culture - Preliminary Presumptive Staph aureus 02/15/23 21:43 Gram Stain - Preliminary Back Wound Culture - Preliminary Presumptive Staph aureus 02/13/23 16:36 Blood Culture - Preliminary Blood 02/13/23 16:20 Blood Culture - Preliminary Blood 02/13/23 17:33 Gram Stain - Final Neck Wound Culture - Final Staphylococcus aureus 02/13/23 17:33 Gram Stain - Final Abdomen Wound Culture - Final Staphylococcus aureus
--- NOTE | 2023-02-17 15:20 | P.PN ---
Subjective Progress Note Date: 02/17/23 Principal diagnosis: Pubic and left posterior shoulder/back area abscess Patient is 32 year male with a past medical history significant for diabetes mellitus presented to the hospital with boil/infection to the pubic and left posterior shoulder area. Patient is s/p surgical drainage of the suprapubic and the left posterior shoulder area abscess completed by general surgery on 02/15/2023. On today's evaluation that is 02/17/2023, the patient remains to be afebrile, p atient is breathing comfortably on room air, the patient denies any chest pain shortness of breath or cough no abdominal pain or diarrhea pain to the suprapubic and the posterior shoulder area has decreased in intensity Objective - Vital Signs Vital signs: Vital Signs Temp 98.2 F 02/17/23 15:00 Pulse 87 02/17/23 15:00 Resp 16 02/17/23 15:00 BP 174/96 02/17/23 15:00 Pulse Ox 98 02/17/23 15:00 FiO2 Intake & Output 02/16/23 02/17/23 02/17/23 18:59 06:59 18:59 Intake Total 358 118 Balance 358 118 Intake: Oral 358 118 Other: Voiding Method Toilet # Voids 2 2 3 - Exam GENERAL DESCRIPTION: Middle-aged male lying in bed in no distress RESPIRATORY SYSTEM: Unlabored breathing , decreased breath sounds at bases HEART: S1 S2 regular rate and rhythm , ABDOMEN: Soft , no tenderness EXTREMITIES: Left posterior shoulder area still have area of erythema - Labs CBC & Chem 7: 02/17/23 04:28 02/17/23 04:28 Labs: Abnormal Lab Results - Last 24 Hours (Table) 02/16/23 02/16/23 02/17/23 Range/Units 17:10 21:36 04:28 RBC 3.59 L (4.40-5.60) X 10*6/uL Hgb 10.6 L (13.0-17.0) g/dL Hct 32.2 L (39.6-50.0) % Immature Gran # 0.08 H (0.00-0.04) X 10*3/uL Glucose (70-110) mg/dL POC Glucose (mg/dL) 292 H 304 H (70-110) mg/dL Calcium (8.7-10.3) mg/dL Total Bilirubin (0.30-1.20) mg/dL Total Protein (6.2-8.2) g/dL Albumin (3.8-4.9) g/dL Albumin/Globulin Ratio (1.60-3.17) g/dL 02/17/23 02/17/23 02/17/23 Range/Units 04:28 08:10 12:05 RBC (4.40-5.60) X 10*6/uL Hgb (13.0-17.0) g/dL Hct (39.6-50.0) % Immature Gran # (0.00-0.04) X 10*3/uL Glucose 260 H (70-110) mg/dL POC Glucose (mg/dL) 249 H 225 H (70-110) mg/dL Calcium 7.7 L (8.7-10.3) mg/dL Total Bilirubin <0.15 L (0.30-1.20) mg/dL Total Protein 4.8 L (6.2-8.2) g/dL Albumin 2.4 L (3.8-4.9) g/dL Albumin/Globulin Ratio 1.00 L (1.60-3.17) g/dL Microbiology - Last 24 Hours (Table) 02/13/23 16:36 Blood Culture - Preliminary Blood 02/13/23 16:20 Blood Culture - Preliminary Blood 02/15/23 21:42 Gram Stain - Preliminary Groin Wound Culture - Preliminary Presumptive Staph aureus 02/15/23 21:42 Gram Stain - Preliminary Groin Wound Culture - Preliminary Presumptive Staph aureus 02/15/23 21:42 Gram Stain - Preliminary Groin Tissue Culture - Preliminary Presumptive Staph aureus 02/15/23 21:43 Gram Stain - Preliminary Back Wound Culture - Preliminary Presumptive Staph aureus 02/13/23 17:33 Gram Stain - Final Neck Wound Culture - Final Staphylococcus aureus 02/13/23 17:33 Gram Stain - Final Abdomen Wound Culture - Final Staphylococcus aureus Assessment and Plan (1) Abscess of pubic region Current Visit: Yes Status: Acute Code(s): L02.219 - CUTANEOUS ABSCESS OF TRUNK, UNSPECIFIED SNOMED Code(s): 070131248 Plan: 1patient presenting to the hospital with painful sores to the left posterior shoulder and the pubic area with the area of swelling redness and induration likely concerning for staphylococcal infection and concern for possible MRSA community associated 2Patient is s/p surgical drainage and deep culture which are currently growing MSSA 3-patient antibodies has been adjusted to cefazolin 2 g every 8 hour to continue while inpatient finishing therapy with oral Keflex Time with Patient: Less than 30
[2023-02-17 17:14] LABS: Glucose,Whole Blood 232 mg/dL (70-110)
[2023-02-17] MEDS: amLODIPine 10 MG TAB PO SCH (17:57)
[2023-02-17 20:34] LABS: Glucose,Whole Blood 192 mg/dL (70-110)
[2023-02-17] MEDS: INSULIN DETEMIR (LEVEMIR) 100 UNIT/ML SYR SQ SCH (21:51)
[2023-02-18 02:37] VITALS: RESP 15
[2023-02-18] MEDS: SODIUM CHLORIDE 0.9% 1,000 ML IV SCH (07:36)
[2023-02-18 07:40] LABS: Glucose,Whole Blood 210 mg/dL (70-110)
[2023-02-18 08:19] VITALS: BP 160/89; PULSE 84; TEMP 98.2
[2023-02-18 08:43] LABS: HCT 33.9 % (39.6-50.0); HGB 11.2 g/dL (13.0-17.0); MCH 29.4 pg (27.0-32.0); Mean Platelet Volume 10.3 fL (9.5-12.2); NRBC Per 100 WBC 0 /100 WBCS (0.0-0.0); Platelet Count 291 X 10*3/uL (140-440); RBC 3.81 X 10*6/uL (4.40-5.60); RDW 12.2 % (11.5-14.5); WBC 6.36 X 10*3/uL (4.50-10.00)
[2023-02-18] MEDS: HEPARIN SODIUM,PORCINE/PF 5,000 UNIT/0.5 ML SYRINGE SQ SCH (08:58)
[2023-02-18] MEDS: amLODIPine 10 MG TAB PO SCH (09:10)
[2023-02-18] MEDS: INSULIN ASPART (NovoLOG) 100 UNIT/ML VIAL SQ SCH ×4 (09:10→12:44)
[2023-02-18 09:13] LABS: ALT 10 U/L (10-49); AST 11 U/L (14-35); African American GFR (CKD) 92.8 (60.0-200.0); Albumin 2.5 g/dL (3.8-4.9); Albumin/Globulin Ratio 0.96 (1.60-3.17); Alkaline Phosphatase 99 U/L (41-126); BUN/Creat Ratio 13.58 Ratio (12.00-20.00); Blood Urea Nitrogen 16.3 mg/dL (9.0-27.0); Calcium 8.2 mg/dL (8.7-10.3); Carbon Dioxide 20.7 mmol/L (20.0-27.5); Chloride 110 mmol/L (96-109); Globulin 2.6 g/dL (1.6-3.3); Glucose 202 mg/dL (70-110); Non-African American GFR(CKD) 80.1 (60.0-200.0); Sodium 140 mmol/L (135-145); Total Bilirubin <0.15 mg/dL (0.30-1.20); Total Protein 5.1 g/dL (6.2-8.2)
--- NOTE | 2023-02-18 11:24 | P.PN ---
Subjective Progress Note Date: 02/18/23 CHIEF COMPLAINT: Suprapubic abscess and upper back abscess HISTORY OF PRESENT ILLNESS: Patient status post incision and drainage with Bourbon drainage and placement of both the suprapubic abscess and upper back abscess. Patient reports improvement in pain. Denies any nausea or vomiting. Afebrile. WBC is 6.35 hgb 11.2 platelets 291 sodium is 140 potassium 4.0 creatinine 1.2 glucose 210 hemoglobin A1c 16.8 culture is growing presumptive staph aureus. PHYSICAL EXAM: VITAL SIGNS: Reviewed GENERAL: Well-developed in no acute distress. HEENT: No sclera icterus. Extraocular movements grossly intact. Moist buccal mucosa. Head is atraumatic, normocephalic. Hears conversational speech. No nasal d rainage. NECK: Supple without lymphadenopathy. CHEST: Non-labored respirations and equal bilateral excursions. CARDIOVASCULAR: Palpable 2+ radial pulses. ABDOMEN: Soft. Nondistended. Suprapubic abscess with Bourbon drain service and was drainage noted. Decrease in swelling. MUSCULOSKELETAL: No clubbing or cyanosis. NEUROLOGIC: No focal or lateralizing signs. Cranial nerves II through XII grossly intact. PSYCH: Appropriate affect. Alert and oriented to person, place and time. SKIN: Well perfused. Good skin turgor. Upper back abscess with Bourbon drain serosanguineous drainage noted. Decreased swelling and erythema. ASSESSMENT: 1. Complex abdominal wall abscess suprapubic 9 x 8 cm, deep intramuscular with necrosis ulceration 4 x 3 cm 2. Leukocytosis 3. Hyperglycemia 4. Uncontrolled diabetes mellitus type 2 5. Obesity due to excess calories BMI 31.1 6. 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 Signing provider agrees with the documented findings, assessment, and plan of care. Objective - Vital Signs Vital signs: Vital Signs Temp 98.2 F 02/18/23 07:00 Pulse 84 02/18/23 07:00 Resp 15 02/18/23 07:00 BP 160/89 02/18/23 07:00 Pulse Ox 97 02/18/23 07:00 FiO2 Intake & Output 02/17/23 02/18/23 02/18/23 18:59 06:59 18:59 Intake Total 478 118 Balance 478 118 Intake: Oral 478 118 Other: Voiding Method Toilet # Voids 3 2 - Labs CBC & Chem 7: 02/18/23 05:52 02/18/23 05:52 Labs: Abnormal Lab Results - Last 24 Hours (Table) 02/17/23 02/17/23 02/17/23 Range/Units 04:28 12:05 17:12 RBC (4.40-5.60) X 10*6/uL Hgb (13.0-17.0) g/dL Hct (39.6-50.0) % Chloride (96-109) mmol/L Anion Gap (10.00-18.00) mmol/L Glucose 260 H (70-110) mg/dL POC Glucose (mg/dL) 225 H 232 H (70-110) mg/dL Calcium 7.7 L (8.7-10.3) mg/dL Total Bilirubin <0.15 L (0.30-1.20) mg/dL AST (14-35) U/L Total Protein 4.8 L (6.2-8.2) g/dL Albumin 2.4 L (3.8-4.9) g/dL Albumin/Globulin Ratio 1.00 L (1.60-3.17) g/dL 02/17/23 02/18/23 02/18/23 Range/Units 20:32 05:52 05:52 RBC 3.81 L (4.40-5.60) X 10*6/uL Hgb 11.2 L (13.0-17.0) g/dL Hct 33.9 L (39.6-50.0) % Chloride 110 H (96-109) mmol/L Anion Gap 9.30 L (10.00-18.00) mmol/L Glucose 202 H (70-110) mg/dL POC Glucose (mg/dL) 192 H (70-110) mg/dL Calcium 8.2 L (8.7-10.3) mg/dL Total Bilirubin <0.15 L (0.30-1.20) mg/dL AST 11 L (14-35) U/L Total Protein 5.1 L (6.2-8.2) g/dL Albumin 2.5 L (3.8-4.9) g/dL Albumin/Globulin Ratio 0.96 L (1.60-3.17) g/dL 02/18/23 Range/Units 07:38 RBC (4.40-5.60) X 10*6/uL Hgb (13.0-17.0) g/dL Hct (39.6-50.0) % Chloride (96-109) mmol/L Anion Gap (10.00-18.00) mmol/L Glucose (70-110) mg/dL POC Glucose (mg/dL) 210 H (70-110) mg/dL Calcium (8.7-10.3) mg/dL Total Bilirubin (0.30-1.20) mg/dL AST (14-35) U/L Total Protein (6.2-8.2) g/dL Albumin (3.8-4.9) g/dL Albumin/Globulin Ratio (1.60-3.17) g/dL Microbiology - Last 24 Hours (Table) 02/13/23 16:36 Blood Culture - Preliminary Blood 02/13/23 16:20 Blood Culture - Preliminary Blood 02/15/23 21:42 Gram Stain - Preliminary Groin Wound Culture - Preliminary Presumptive Staph aureus 02/15/23 21:42 Gram Stain - Preliminary Groin Wound Culture - Preliminary Presumptive Staph aureus 02/15/23 21:42 Gram Stain - Preliminary Groin Tissue Culture - Preliminary Presumptive Staph aureus 02/15/23 21:43 Gram Stain - Preliminary Back Wound Culture - Preliminary Presumptive Staph aureus
[2023-02-18 12:30] LABS: Glucose,Whole Blood 215 mg/dL (70-110)
--- NOTE | 2023-02-18 13:09 | P.DS ---
Providers Date of admission: 02/15/23 21:48 Expected date of discharge: 02/18/23 Attending physician: Shannon Blanca Consults: 02/13/23 20:12 Consult Physician Routine Consulting Provider: Palmira Price Consult Reason/Comments: abscess Do you want consulting provider notified?: Yes, Notify in am Consult Physician Routine Consulting Provider: Queta Scott Consult Reason/Comments: abscess Do you want consulting provider notified?: Yes, Notify in am Primary care physician: Stated None Hospital Course: Discharge diagnoses; Complex abdominal wall abscess suprapubic Hyperglycemia Uncontrolled diabetes mellitus type 2 Obesity due to excess calories BMI 31.1 Upper back abscess Sepsis secondary to above Hospital course; Patient is a 32-year-old male with a known history of diet-controlled diabetes type 2 presents to ER with complaints of abscess in the pubic region and also posterior neck. Patient has been having boils and is getting worse for the past 1 week. Patient states that last week he drove from [place] to [place] for his job and also works in hot climate and sweaty always. Denies any fever or chills. No nausea vomiting abdominal pain or diarrhea. No cough or sputum production. Laboratory data showed WBC 12.6 hemoglobin 13.3 and platelets 308, sodium 135 potassium 4.3 chloride 103 bicarb is 18 BUN 21 creatinine 1.01 and blood sugar is 279. AST 20 ALT 23 and alk phos 203 albumin 2.9. 02/16. Patient seen and examined. WBC this morning is 12.5, hemoglobin 8.5, sodium 138, potassium 4.5, creatinine 1.38 02/17. Patient seen and examined. Significant other at the bedside. Sitting upright in the recliner. States pain is under control. Patient keen to go home. 02/18. Patient being discharged on oral Keflex per ID, scripts given by ID. Outpatient follow-up with ID and general surgery PHYSICAL EXAMINATION: GENERAL: The patient is alert and oriented x3, not in any acute distress. Well developed, well nourished. HEENT: Pupils are round and equally reacting to light. EOMI. No scleral icterus. No conjunctival pallor. Normocephalic, atraumatic. No pharyngeal erythema. No thyromegaly. CARDIOVASCULAR: S1 and S2 present. No murmurs, rubs, or gallops. PULMONARY: Chest is clear to auscultation, no wheezing or crackles. ABDOMEN: Soft, nontender, nondistended, normoactive bowel sounds. Surgical inci flex seen in the pubic area, Anson drains seen MUSCULOSKELETAL: No joint swelling or deformity. EXTREMITIES: No cyanosis, clubbing, or pedal edema. NEUROLOGICAL: Gross neurological examination did not reveal any focal deficits. SKIN: Surgical incision seen in the left side of the back Patient Condition at Discharge: Stable Plan - Discharge Summary Discharge Rx Participant: No New Discharge Prescriptions: New Cephalexin [Keflex] 500 mg PO Q6HR 14 Days #56 cap HYDROcodone/APAP 5-325MG [[place] 5-325] 1 tab PO Q6HR PRN 3 Days #12 tab PRN Reason: Moderate To Severe Pain (4-10) amLODIPine [Norvasc] 10 mg PO DAILY #30 tab Insulin Lispro [Admelog Solostar] 5 units SQ AC-TID #1 each Insulin Detemir (Levemir) [Levemir] 15 unit SQ HS #1 each Continue Ibuprofen [Motrin Ib] 800 mg PO Q8H PRN PRN Reason: Fever And/ Or Pain Discharge Medication List Ibuprofen [Motrin Ib] 800 mg PO Q8H PRN 02/13/23 [History] Cephalexin [Keflex] 500 mg PO Q6HR 14 Days #56 cap 02/18/23 [Rx] HYDROcodone/APAP 5-325MG [[place] 5-325] 1 tab PO Q6HR PRN 3 Days #12 tab 02/18/23 [Rx] Insulin Detemir (Levemir) [Levemir] 15 unit SQ HS #1 each 02/18/23 [Rx] Insulin Lispro [Admelog Solostar] 5 units SQ AC-TID #1 each 02/18/23 [Rx] amLODIPine [Norvasc] 10 mg PO DAILY #30 tab 02/18/23 [Rx] Follow up Appointment(s)/Referral(s): Palmira Price MD [STAFF PHYSICIAN] - 02/26/23 None,Stated [Primary Care Provider] - 1-2 days Queta Scott MD [STAFF PHYSICIAN] - 1 Week Discharge Disposition: HOME SELF-CARE
== END 2023-02-18 14:30 | disposition home or self-care (01) | DRG 710 ==
LOC: EC 11:07 → 6NMEDSUR 20:17 → OBSVTOIN 02-15 21:48
PROVIDERS: ADMIT Hospitalist; ATTEND Hospitalist
PROC: 0KDL0ZZ Extraction of Left Abdomen Muscle, Open Approach (ICD-10-PCS; 2023-02-15)
PROC: 0KD Muscles, Extraction (ICD-10-PCS; 2023-02-15)
PROC: 0KBL0ZZ Excision of Left Abdomen Muscle, Open Approach (ICD-10-PCS; 2023-02-15)
PROC: 0KBK0ZZ Excision of Right Abdomen Muscle, Open Approach (ICD-10-PCS; 2023-02-15)
PROC: 0JB70ZZ Excision of Back Subcutaneous Tissue and Fascia, Open Approach (ICD-10-PCS; 2023-02-15)
PROC: 0J9700Z Drainage of Back Subcutaneous Tissue and Fascia with Drainage Device, Open Approach (ICD-10-PCS; 2023-02-15)
PROC: 0J9C00Z Drainage of Pelvic Region Subcutaneous Tissue and Fascia with Drainage Device, Open Approach (ICD-10-PCS; principal; 2023-02-15 08:45)
DX: A41.01 Sepsis due to Methicillin susceptible Staphylococcus aureus (principal); M60.08 Infective myositis, other site; L02.214 Cutaneous abscess of groin; L02.11 Cutaneous abscess of neck; E11.65 Type 2 diabetes mellitus with hyperglycemia; E66.09 Other obesity due to excess calories; L98.493 Non-pressure chronic ulcer of skin of other sites with necrosis of muscle; B95.61 Methicillin susceptible Staphylococcus aureus infection as the cause of diseases classified elsewhere; Z68.31 Body mass index [BMI] 31.0-31.9, adult; Z86.711 Personal history of pulmonary embolism; Z86.16 Personal history of COVID-19; Z28.310 Unvaccinated for COVID-19
CPT/HCPCS: 36415; 80048; 80053; 80202; 82565; 83036; 85025; 85027; 87040; 87070; 87075; 87077; 87186; 87205; 96365; 96366; 96367; 96375; 99284